=== PATIENT | male | born 1995 | race Hispanic/Latino ===

== ENCOUNTER 2022-04-08 05:35 | Emergency (ER) | payer OTHER ==
[2022-04-08 05:58] LABS: Hemoglobin 14.7 g/dL (14.0-18.0); Mean Corpuscular HGB CONC 33.1 g/dL (32.0-36.0); Mean Corpuscular Hemoglobin 30.4 pg (27.0-31.0); Mean Corpuscular Volume 91.8 fL (78.0-98.0); Mean Platelet Volume 10.6 fL (7.4-10.4); Platelet Count 175 thou/uL (130-400); RBC Distribution Width 11.5 % (11.5-14.5); Red Blood Cell (RBC) Count 4.85 mill/uL (4.70-6.10); White Blood Cell (WBC) Count 9.6 thou/uL (4.8-10.8)
[2022-04-08 06:01] LABS: %Basophils 1.2 % (0.0-1.0); %Eosinophils 3.5 % (0.0-10.0); %Lymphocytes 30.1 % (21.0-51.0); %Monocytes 5.9 % (0.0-10.0); %Neutrophils 59.4 % (42.0-75.0)
[2022-04-08 06:02] LABS: #Basophils 0.1 thou/uL (0.0-0.2); #Eosinphils 0.3 thou/uL (0.0-0.7); #Lymphocytes 2.9 thou/uL (1.20-3.40); #Monocytes 0.6 thou/uL (0.11-0.59); #Neutrophils 5.7 thou/uL (1.40-6.50)
[2022-04-08 06:10] LABS: ALT (SGPT) 22 U/L (8-55); AST (SGOT) 18 U/L (5-34); Albumin 4.1 g/dL (3.5-5.0); Alkaline Phosphatase 67 U/L (40-110); Anion Gap 16 mmol/L (10-20); BUN (Urea Nitrogen) 18 mg/dL (8.9-20.6); Bilirubin, Total 1.2 mg/dL (0.2-1.2); Calc. Creatinine Clearance 0 mL/min (70-130); Calcium 9.1 mg/dL (7.8-10.44); Carbon Dioxide 25 mmol/L (22-29); Chloride 104 mmol/L (98-107); Estimated GFR 122; Globulin 3.3 g/dL (2.4-3.5); Glucose 92 mg/dL (70-105); Potassium 3.9 mmol/L (3.5-5.1); Protein, Total 7.4 g/dL (6.0-8.3); Sodium 141 mmol/L (136-145)
[2022-04-08] MEDS ORDERED: Acetaminophen 325 MG TAB ONE (06:11)
== END 2022-04-08 06:22 ==
LOC: NAV ERS 05:35
DX: G89.29 Other chronic pain (principal); R07.9 Chest pain, unspecified
CPT/HCPCS: 71045; 80053; 84484; 85025; 93005